=== PATIENT | male | born 1975 | race Two or more races ===

== ENCOUNTER 2022-04-19 18:38 | Emergency (ER) | payer OTHER ==
[~2022-04-19] VITALS: Ht 172.7 cm; Wt 113.4 kg
[2022-04-19 19:31] VITALS: BP 144/74
--- NOTE | 2022-04-19 19:34 | NUR ---
TO LOBBY A/W BED AMBULATORY
--- NOTE | 2022-04-19 22:14 | NUR ---
46YR OLD MALE BIB SELF C/O RECTAL PAIN. PT STATES HE HAS HAD RECTAL ABCESS IN PAST. 5/10 PAIN. PT IS AMBULATORY. A&OX4. NKDA DM
--- NOTE | 2022-04-19 22:15 | NUR ---
Dr. Mcdaniel examining patient.
[2022-04-19] MEDS ORDERED: KETOROLAC 15 MG/ML VIAL IVP ONE (22:55)
--- NOTE | 2022-04-19 23:17 | NUR ---
20G IV CATH PLACED L AC. CT ABD WITH CONTRAST
[2022-04-19 23:25] LABS: BASOPHILS # (AUTO) 0.3 K/uL (0.00-0.22); BASOPHILS % (AUTO) 2.1 % (0.0-2.0); EOSINOPHILS # (AUTO) 0.4 K/uL (0-0.4); EOSINOPHILS % (AUTO) 3.3 % (0.0-4.0); HEMATOCRIT 39.8 % (36-52); HEMOGLOBIN 13.1 g/dL (12.0-18.0); LYMPHOCYTES % (AUTO) 32.7 % (20.5-51.1); MEAN CORPUSCULAR HEMOGLOBIN 31 pg (27-31); MEAN CORPUSCULAR HGB CONC 33 g/dL (33-37); MEAN CORPUSCULAR VOLUME 92.5 fL (80-94); MONOCYTES # (AUTO) 1.4 K/uL (0.8-1.0); MONOCYTES % (AUTO) 11.6 % (1.7-9.3); NEUTROPHILS # (AUTO) 6.2 K/uL (1.8-7.7); NEUTROPHILS % (AUTO) 50.3 % (42.2-75.2); PLATELET COUNT (AUTO) 268 K/uL (140-450); RED CELL DISTRIBUTION WIDTH 14.3 % (11.6-13.7); WHITE BLOOD COUNT (AUTO) 12.3 K/uL (4.8-10.8)
[2022-04-19 23:47] LABS: ALBUMIN 3.6 g/dL (3.4-5.0); ANION GAP 12.8 (8-16); CARBON DIOXIDE 28.1 mmol/L (21-32); POTASSIUM 3.9 mmol/L (3.5-5.1); TOTAL BILIRUBIN 0.2 mg/dL (0.0-1.0)
--- NOTE | 2022-04-19 23:57 | NUR ---
PT TAKEN TO CT
[2022-04-20] LABS: PROTHROMBIN TIME 9.8 secs (10.8-13.4)
--- NOTE | 2022-04-20 00:07 | NUR ---
PT BACK FROM CT
--- NOTE | 2022-04-20 00:22 | NUR ---
PT RESTING IN BED RESP EVEN AND UNLABORED. PENDING CT RESULTS
--- NOTE | 2022-04-20 02:21 | NUR ---
PENDING CT RESULTS. PT ASLEEP WITH HOB ELEVATED. RESP EVEN AND UNLABORED. BED AT LOWEST POSITION SIDE RAILS X2
[2022-04-20] MEDS ORDERED: AMOX1TER15 PO (03:22)
[2022-04-20] MEDS ORDERED: ACET-8905 PO (03:22)
[2022-04-20 03:30] VITALS: BP 139/71
--- NOTE | 2022-04-20 03:30 | NUR ---
Patient discharged with v/s stable. Written and verbal after care instructions given and explained. Patient verbalized understanding. Ambulatory with steady gait. All questions addressed prior to discharge. Advised to follow up with PMD.
== END 2022-04-20 03:30 | disposition home or self-care (01) ==
LOC: MED 18:38
DX: K61.1 Rectal abscess (principal); R74.01 Elevation of levels of liver transaminase levels; E11.9 Type 2 diabetes mellitus without complications; I10 Essential (primary) hypertension; E78.5 Hyperlipidemia, unspecified; Z79.899 Other long term (current) drug therapy
CPT/HCPCS: 36415; 74177; 80053; 85025; 85610; 85651; 85730; 86140; 96374; 99285; J1885; Q9967

== ENCOUNTER 2023-06-27 15:31 | Emergency (ER) | payer OTHER ==
[~2023-06-27] VITALS: Ht 172.7 cm; Wt 117.9 kg
[~2023-06-27 15:31] MED LIST: ACET-8905 PO; AMOX1TER15 PO
[2023-06-27 15:39] VITALS: BP 124/68; PULSE 97; RESP 18; TEMP 98; O2SAT 99
[2023-06-27] MEDS ORDERED: MECL-303 PO (15:56)
[2023-06-27 16:00] VITALS: BP 124/68; PULSE 97; RESP 18; TEMP 98; O2SAT 99
== END 2023-06-27 16:00 | disposition home or self-care (01) ==
LOC: MED 15:31
DX: R42 Dizziness and giddiness (principal); E11.9 Type 2 diabetes mellitus without complications; I10 Essential (primary) hypertension; Z79.899 Other long term (current) drug therapy
CPT/HCPCS: 82947; 82948; 99282

== ENCOUNTER 2023-10-15 14:20 | Emergency (ER) | payer OTHER ==
[~2023-10-15] VITALS: Ht 172.7 cm; Wt 108.9 kg
[~2023-10-15 14:20] MED LIST changes: +MECL-303 PO
[2023-10-15 14:40] VITALS: BP 147/79; PULSE 86; RESP 22; TEMP 97.4; O2SAT 99
[2023-10-15] MEDS ORDERED: DICL20GE TP (15:26)
[2023-10-15] MEDS ORDERED: GABA300C PO (15:26)
== END 2023-10-15 15:40 | disposition home or self-care (01) ==
LOC: MED 14:20
DX: E11.40 Type 2 diabetes mellitus with diabetic neuropathy, unspecified (principal); I10 Essential (primary) hypertension; Z79.899 Other long term (current) drug therapy
CPT/HCPCS: 99283